=== PATIENT | male | born 1985 | race Caucasian/White ===

== ENCOUNTER 2021-05-23 03:35 | Emergency (ER) | payer BC ==
[~2021-05-23] VITALS: Ht 175.3 cm; Wt 94.9 kg
[2021-05-23] MEDS ORDERED: ONDANSETRON HCL 4MG TABLET PO ONE (05:45)
[2021-05-23] MEDS ORDERED: ACETAMINOPHEN 325MG TABLET PO ONE (05:45)
[2021-05-23 06:02] LABS: BASOPHILS % 0.3 % (0.0-2.0); EOSINOPHILS % 0.4 % (0.0-5.0); HEMATOCRIT. 44.8 % (42.0-52.0); HEMOGLOBIN. 15.3 g/dL (14.0-18.0); LYMPHOCYTES % 8.8 % (20.0-50.0); MEAN CORPUSCULAR VOLUME 85.1 fL (80.0-94.0); MEAN PLATELET VOLUME 8.6 fl (7.4-10.4); MONOCYTES % 8.6 % (2.0-8.0); NEUTROPHILS % 81.9 % (40.0-76.0); PLATELET 251 x1000/uL (130-400); RED BLOOD CELL COUNT 5.27 mill/uL (4.7-6.1); RED CELL DISTRIBUTION WIDTH 13.5 % (11.6-14.6)
[2021-05-23 06:03] LABS: CLARITY URINE CLEAR (CLEAR); COLOR URINE YELLOW (YELLOW); KETONES URINE 3+ (NEGATIVE); LEUKOCYTE ESTERASE URINE 1+ (NEGATIVE); NITRITE URINE NEGATIVE (NEGATIVE); OCCULT BLOOD URINE NEGATIVE (NEGATIVE); PH URINE 5.5 (4.5-8.0); PROTEIN URINE TRACE (NEGATIVE); SPECIFIC GRAVITY URINE 1.027 (1.005-1.030)
[2021-05-23 06:43] LABS: CHLORIDE 104 mEq/L (98-107)
[2021-05-23 06:49] LABS: ETHANOL BLOOD < 10 mg/dL
[2021-05-23] MEDS ORDERED: METR-167 PO (06:58)
[2021-05-23] MEDS ORDERED: CIPR500T5 PO (06:58)
[2021-05-23] MEDS ORDERED: IBUP-2028 PO (06:58)
[2021-05-23] MEDS ORDERED: T3 PO (06:58)
[2021-05-23] MEDS ORDERED: IBUPROFEN 400MG TABLET PO ONE (07:00)
[2021-05-23 07:09] VITALS: BP 137/66
[2021-05-23 07:51] LABS: CANNABINOID URINE SCREEN PRESUMTIVE POSITIVE (NEGATIVE); OPIATES URINE SCREEN NEGATIVE (NEGATIVE); PHENCYCLIDINE URINE SCREEN NEGATIVE (NEGATIVE)
[2021-05-23 07:52] LABS: *AMPHETAMINES SCREEN URINE NEGATIVE (NEGATIVE); *BARBITURATES SCREEN URINE NEGATIVE (NEGATIVE); *BENZODIAZEPINES SCREEN URINE NEGATIVE (NEGATIVE); *COCAINE SCREEN URINE NEGATIVE (NEGATIVE); METHADONE URINE SCREEN NEGATIVE (NEGATIVE)
== END 2021-05-23 07:10 | disposition home or self-care (01) ==
LOC: ER 03:35
DX: K57.92 Diverticulitis of intestine, part unspecified, without perforation or abscess without bleeding (principal); J45.909 Unspecified asthma, uncomplicated; Z79.899 Other long term (current) drug therapy
CPT/HCPCS: 36415; 74176; 80053; 80305; 80320; 81003; 83690; 85025; 93005; 99285; Q0162; G0480